=== PATIENT | male | born 1955 | race African-American/Black ===

== ENCOUNTER 2022-04-01 03:33 | Inpatient (IN) | payer MEDICARE, MEDICAID ==
[~2022-04-01] VITALS: Ht 188 cm; Wt 105.8 kg
[2022-04-01] VITALS (9 sets, daily range): BP systolic 130–159; BP diastolic 20–80
[2022-04-01 04:33] LABS: EOSINOPHILS % 4.5 % (0.0-5.0); HEMATOCRIT. 26.2 % (42.0-52.0); HEMOGLOBIN. 8.1 g/dL (14.0-18.0); LYMPHOCYTES % 18.9 % (20.0-50.0); MEAN CORPUSCULAR HEMOGLOBIN 27.7 pg (28.0-32.0); MEAN CORPUSCULAR VOLUME 89.3 fL (80.0-94.0); MEAN PLATELET VOLUME 9.2 fl (7.4-10.4); MONOCYTES % 5.1 % (2.0-8.0); NEUTROPHILS % 70.5 % (40.0-76.0); PLATELET 226 x1000/uL (130-400); RED BLOOD CELL COUNT 2.94 mill/uL (4.7-6.1); RED CELL DISTRIBUTION WIDTH 17.5 % (11.6-14.6)
[2022-04-01 04:39] LABS: CHLORIDE 97 mEq/L (98-107)
[2022-04-01 04:40] LABS: BG BASE EXCESS 0.9 mmol/L (-2.0-2.0); BG CARBOXYHEMOGLOBIN 0.7 % (0.5-1.5); BG DEOXYHEMOGLOBIN 1.1 % (0.0-5.0); BG FRACTION INSPIRED OXYGEN 100; BG HCO3 ACT 26.9 mmol/L (22.0-26.0); BG METHEMOGLOBIN 0.2 % (0.0-1.5); BG OXYGEN SATURATION 98.9 % (92.0-98.5); BG PCO2 51.1 mmHg (35.0-45.0); BG PH 7.339 (7.350-7.450); BG PO2 172.8 mmHg (75.0-100.0); BG SAMPLE SITE RIGHT RADIAL; BG TOTAL HEMOGLOBIN 7.6 g/dL (12.0-18.0); BG TOTAL RESPIRATORY RATE 23 b/min; BG VENT MODE MASK - BIPAP
[2022-04-01] MEDS ORDERED: TRAMADOL 50MG TABLET PO PRN (07:30)
[2022-04-01] MEDS ORDERED: ONDANSETRON HCL 4MG/2ML INJ IV PRN (07:30)
[2022-04-01] MEDS ORDERED: IPRATROPIUM/ALBUTEROL 0.5-3(2.5)MG/3ML NEB NEB PRN (07:30)
[2022-04-01] MEDS ORDERED: CLONIDINE 0.1MG TABLET PO PRN (07:30)
[2022-04-01] MEDS ORDERED: ACETAMINOPHEN 325MG TABLET PO PRN ×2 (07:30)
[2022-04-01] MEDS ORDERED: ZOLPIDEM TARTRATE 5MG TABLET PO PRN (07:30)
[2022-04-01] MEDS ORDERED: MAGNESIUM/ALUMINUM HYDROXIDE/SIMETHICONE 30ML UDC PO PRN (07:30)
[2022-04-01] MEDS ORDERED: DOCUSATE SODIUM 100MG CAPSULE PO PRN (07:30)
[2022-04-01] MEDS ORDERED: NITROGLYCERIN 0.4MG TABLET SL SL PRN (07:45)
[2022-04-01] MEDS ORDERED: NALOXONE HCL 0.4MG/ML VIAL IV PRN (07:45)
[2022-04-01] MEDS: FAMOTIDINE 20MG TABLET PO SCH (08:33)
[2022-04-01] MEDS: SEVELAMER CARBONATE 800 MG TABLET PO SCH ×3 (08:33→17:42)
[2022-04-01] MEDS: ENOXAPARIN 40MG/0.4ML SYR SUBCUT SCH (08:33)
[2022-04-01] MEDS: ASPIRIN 81MG EC TABLET PO SCH (08:33)
[2022-04-01] MEDS: AMLODIPINE 10MG TABLET PO SCH (08:34)
[2022-04-01] MEDS: CLOPIDOGREL 75MG TABLET PO SCH (08:34)
[2022-04-01 11:10] LABS: HEPATITIS B SURFACE ANTIGEN NEGATIVE
[2022-04-01] MEDS ORDERED: DEXTROSE 50% WATER 50ML SYRINGE IV PRN (11:45)
[2022-04-01] MEDS: INSULIN LISPRO 100 UNITS/ML SUBCUT SCH ×3 (13:00→21:07)
[2022-04-01] MEDS: BLOOD SUGAR DIAGNOSTIC STRIP TEST SCH ×3 (13:09→20:46)
[2022-04-01 16:25] LABS: CREATINE KINASE MB FRACTION 2.7 ng/mL (0.5-3.6)
[2022-04-01] MEDS: EPOETIN ALFA-EPBX 4,000 UNIT/ML VIAL SUBCUT SCH (20:49)
[2022-04-01 23:41] LABS: CREATINE KINASE MB FRACTION 2.5 ng/mL (0.5-3.6)
[2022-04-02] VITALS (12 sets, daily range): BP systolic 131–173; BP diastolic 54–86
[2022-04-02] MEDS: INSULIN LISPRO 100 UNITS/ML SUBCUT SCH ×4 (08:00→21:00)
[2022-04-02] MEDS: ENOXAPARIN 40MG/0.4ML SYR SUBCUT SCH (08:08)
[2022-04-02] MEDS: CLOPIDOGREL 75MG TABLET PO SCH (08:08)
[2022-04-02] MEDS: AMLODIPINE 10MG TABLET PO SCH (08:09)
[2022-04-02] MEDS: ASPIRIN 81MG EC TABLET PO SCH (08:09)
[2022-04-02] MEDS: SEVELAMER CARBONATE 800 MG TABLET PO SCH ×3 (08:09→17:18)
[2022-04-02] MEDS: FAMOTIDINE 20MG TABLET PO SCH (08:09)
[2022-04-02] MEDS: BLOOD SUGAR DIAGNOSTIC STRIP TEST SCH ×4 (08:12→21:51)
[2022-04-02] MEDS ORDERED: IRON SUCROSE COMPLEX 100 MG/5 ML ML IV NR (08:30)
[2022-04-02] MEDS ORDERED: CEFTRIAXONE 1 G PREMIX 50 ML IV SCH (11:00)
[2022-04-02] MEDS ORDERED: VANCOMYCIN 1.25GM PMX (XELLIA) 250 ML IV SCH (11:00)
[2022-04-02] MEDS ORDERED: VANCOMYCIN 2,000 MG in DEXT 5% WATER 500 ML IV SCH (12:30)
[2022-04-02] MEDS: CEFTRIAXONE 1,000 MG in DEXTROSE 5% WATER 50 ML IV SCH (13:00)
[2022-04-03] VITALS (15 sets, daily range): BP systolic 106–161; BP diastolic 45–67
[2022-04-03] MEDS: INSULIN LISPRO 100 UNITS/ML SUBCUT SCH ×4 (07:44→21:00)
[2022-04-03] MEDS: BLOOD SUGAR DIAGNOSTIC STRIP TEST SCH ×4 (07:44→21:11)
[2022-04-03] MEDS: ASPIRIN 81MG EC TABLET PO SCH (08:33)
[2022-04-03] MEDS: ENOXAPARIN 40MG/0.4ML SYR SUBCUT SCH (08:33)
[2022-04-03] MEDS: SEVELAMER CARBONATE 800 MG TABLET PO SCH ×3 (08:34→18:21)
[2022-04-03] MEDS: CLOPIDOGREL 75MG TABLET PO SCH (08:34)
[2022-04-03] MEDS: AMLODIPINE 10MG TABLET PO SCH (08:34)
[2022-04-03] MEDS: FAMOTIDINE 20MG TABLET PO SCH (08:35)
[2022-04-03 09:53] LABS: HEMATOCRIT 22.9 % (42.0-52.0); HEMOGLOBIN 7.3 g/dL (14.0-18.0); MEAN CORPUSCULAR HEMOGLOBIN 28.4 pg (28.0-32.0); MEAN CORPUSCULAR VOLUME 89.1 fL (80.0-94.0); PLATELET 137 x1000/uL (130-400); RED BLOOD CELL COUNT 2.57 mill/uL (4.7-6.1); RED CELL DISTRIBUTION WIDTH 16.8 % (11.6-14.6)
[2022-04-03] MEDS ORDERED: VANCOMYCIN 2,000 MG in DEXT 5% WATER 500 ML IV NR (12:00)
[2022-04-03] MEDS: CEFTRIAXONE 1,000 MG in DEXTROSE 5% WATER 50 ML IV SCH (12:24)
[2022-04-03] MEDS: GUAIFENESIN 200MG/10ML SUGAR FREE UDC PO PRN (18:49)
[2022-04-03] MEDS: EPOETIN ALFA-EPBX 4,000 UNIT/ML VIAL SUBCUT SCH (21:12)
[2022-04-04] VITALS (11 sets, daily range): BP systolic 129–169; BP diastolic 43–79
[2022-04-04] MEDS: GUAIFENESIN 200MG/10ML SUGAR FREE UDC PO PRN ×3 (02:13→13:02)
[2022-04-04 06:41] LABS: HEMATOCRIT 25.2 % (42.0-52.0); HEMOGLOBIN 8.3 g/dL (14.0-18.0); MEAN CORPUSCULAR HEMOGLOBIN 28.8 pg (28.0-32.0); MEAN CORPUSCULAR VOLUME 87.1 fL (80.0-94.0); PLATELET 126 x1000/uL (130-400); RED CELL DISTRIBUTION WIDTH 16.2 % (11.6-14.6)
[2022-04-04] MEDS: INSULIN LISPRO 100 UNITS/ML SUBCUT SCH ×3 (08:00→17:49)
[2022-04-04] MEDS: SEVELAMER CARBONATE 800 MG TABLET PO SCH ×3 (08:27→17:53)
[2022-04-04] MEDS: ENOXAPARIN 40MG/0.4ML SYR SUBCUT SCH ×2 (08:28→11:10)
[2022-04-04] MEDS: CLOPIDOGREL 75MG TABLET PO SCH (08:28)
[2022-04-04] MEDS: ASPIRIN 81MG EC TABLET PO SCH (08:28)
[2022-04-04] MEDS: FAMOTIDINE 20MG TABLET PO SCH (08:28)
[2022-04-04] MEDS: AMLODIPINE 10MG TABLET PO SCH (08:29)
[2022-04-04] MEDS: BLOOD SUGAR DIAGNOSTIC STRIP TEST SCH ×3 (08:39→17:49)
[2022-04-04] MEDS ORDERED: AZITHROMYCIN 500 MG TABLET PO SCH (09:00)
== END 2022-04-04 19:30 | disposition home health service (06) | DRG 189 ==
LOC: ER 03:33 → 5EST 05:38 → EDBEDREQSVC 05:44 → EDBEDREQ 05:44 → EDBEDREQTM 05:44 → ENRESERV 05:57 → SUPCPDRO 06:35 → 5EST 12:50
PROVIDERS: ADMIT Internal Medicine; ATTEND Internal Medicine
PROC: 5A09357 Assistance with Respiratory Ventilation, Less than 24 Consecutive Hours, Continuous Positive Airway Pressure (ICD-10-PCS; principal; 2022-04-01)
PROC: 5A1D70Z Performance of Urinary Filtration, Intermittent, Less than 6 Hours Per Day (ICD-10-PCS; 2022-04-01)
PROC: 5A1D70Z Performance of Urinary Filtration, Intermittent, Less than 6 Hours Per Day (ICD-10-PCS; 2022-04-02)
PROC: 30233N1 Transfusion of Nonautologous Red Blood Cells into Peripheral Vein, Percutaneous Approach (ICD-10-PCS; 2022-04-03)
PROC: 5A1D70Z Performance of Urinary Filtration, Intermittent, Less than 6 Hours Per Day (ICD-10-PCS; 2022-04-03)
DX: J96.01 Acute respiratory failure with hypoxia (principal); I50.43 Acute on chronic combined systolic (congestive) and diastolic (congestive) heart failure; N18.6 End stage renal disease; I13.2 Hypertensive heart and chronic kidney disease with heart failure and with stage 5 chronic kidney disease, or end stage renal disease; N25.81 Secondary hyperparathyroidism of renal origin; E87.2 Acidosis; Z20.822 Contact with and (suspected) exposure to COVID-19; E87.5 Hyperkalemia; J44.9 Chronic obstructive pulmonary disease, unspecified; E11.22 Type 2 diabetes mellitus with diabetic chronic kidney disease; E11.51 Type 2 diabetes mellitus with diabetic peripheral angiopathy without gangrene; E11.621 Type 2 diabetes mellitus with foot ulcer; I25.10 Atherosclerotic heart disease of native coronary artery without angina pectoris; D63.1 Anemia in chronic kidney disease; I44.0 Atrioventricular block, first degree; L97.519 Non-pressure chronic ulcer of other part of right foot with unspecified severity; Z95.1 Presence of aortocoronary bypass graft; Z91.15 Patient's noncompliance with renal dialysis; Z99.2 Dependence on renal dialysis; Z86.16 Personal history of COVID-19; Z87.891 Personal history of nicotine dependence; Z89.512 Acquired absence of left leg below knee
CPT/HCPCS: 36415; 36600; 71045; 80048; 80053; 80061; 82375; 82550; 82553; 82805; 82962; 83036; 83605; 83880; 84145; 84484; 85025; 85027; 86705; 86709; 86803; 86850; 86900; 86920; 87340; 87426; 93005; 93306; 93970; 94660; 97161; 99291; C9803; J0696; J0885; J1650; J1815; J3370; J7060; P9016